=== PATIENT | male | born 1945 | race Caucasian/White ===

== ENCOUNTER 2020-02-09 15:47 | Day surgery (SDC) | payer OTHER ==
[~2020-02-09] VITALS: Ht 182.9 cm; Wt 120.5 kg
[~2020-02-09 15:47] MED LIST: ALBU8HFA PO; AMLO2.5T2 PO; APIX5TAB3 PO; ATOR20TA66 PO; CARV25TA PO; CHOL2000 PO; CYCL-145 PO; DIGO250T76 PO; FERR325T28 PO; FLUT1AER IH; FURO40TA4 PO; LACT1CAP26 PO; LINA5TAB4 PO; NIAC1CAP PO; OMEG1CAP2 PO; OMEP20TA5 PO; OXYC10TA47 PO; PIOG30TA10 PO; SPIIN IH; TAMS0.4C32 PO; [UNRECOGNIZED DRUG - CODE] PO
[2020-02-09 15:48] VITALS: BP 154/67
[2020-02-09] MEDS ORDERED: fentaNYL/PF 50MCG/1 ML 2ML syringe ONE (15:49)
[2020-02-09] MEDS ORDERED: MIDAZolam 5mg/5ml vial ONE (15:49)
[2020-02-09] MEDS ORDERED: LIDOcaine Viscous 15ml cup ONE (15:49)
[2020-02-09 17:38] VITALS: BP 124/63
[2020-02-09 17:48] VITALS: BP 122/54
[2020-02-09] MEDS ORDERED: DOCU-148 PO (17:53)
[2020-02-09] MEDS ORDERED: FURO10VI51 IV (17:54)
[2020-02-09] MEDS ORDERED: PRAV40TA PO (17:57)
[2020-02-09 17:58] VITALS: BP 124/62
[2020-02-09] MEDS ORDERED: TEMA15CA5 PO (18:00)
[2020-02-09] MEDS ORDERED: INSU300I SQ (18:05)
[2020-02-09] MEDS ORDERED: INSU100V43 SQ (18:06)
[2020-02-09] MEDS ORDERED: SEVE800T8 PO (18:07)
[2020-02-09 18:08] VITALS: BP 132/70
[2020-02-09] MEDS ORDERED: BUDE0.253 NEB (18:08)
[2020-02-09] MEDS ORDERED: MYCOL15CR TOP (18:09)
== END 2020-02-09 18:15 ==
LOC: GI LAB 15:47
PROVIDERS: ATTEND Internal Medicine Gastroenterology
DX: D64.9 Anemia, unspecified (principal); K31.811 Angiodysplasia of stomach and duodenum with bleeding; K20.81 Other esophagitis with bleeding; K31.89 Other diseases of stomach and duodenum; K29.50 Unspecified chronic gastritis without bleeding; I11.0 Hypertensive heart disease with heart failure; I50.9 Heart failure, unspecified; J44.9 Chronic obstructive pulmonary disease, unspecified; E11.9 Type 2 diabetes mellitus without complications; F17.290 Nicotine dependence, other tobacco product, uncomplicated; Z79.01 Long term (current) use of anticoagulants; Z79.899 Other long term (current) drug therapy; Z88.8 Allergy status to other drugs, medicaments and biological substances
CPT/HCPCS: 43239; 43255; G0500; J2250; J3010; J7040; 43227; 99152; A4620

== ENCOUNTER 2020-11-09 07:10 | Day surgery (SDC) | payer MEDICARE ==
[2020-11-08 12:59] LABS: BASOPHILS % (AUTO) 0.6 % (0-1); EOSINOPHILS # (AUTO) 0.3 X10'3 (0-0.9); EOSINOPHILS % (AUTO) 4.8 % (0-6); HEMATOCRIT 32.2 % (42.0-52.0); HEMOGLOBIN 10.6 g/dl (14.0-17.9); LYMPHOCYTES # (AUTO) 1.2 X10'3 (1.1-4.8); LYMPHOCYTES % (AUTO) 17.4 % (21-51); MEAN CORPUSCULAR HEMOGLOBIN 27.2 PG (27.0-31.0); MEAN CORPUSCULAR VOLUME 82.5 FL (78-98); MEAN PLATELET VOLUME 6.4 FL (7.4-10.4); MONOCYTES # (AUTO) 0.8 X10'3 (0-0.9); MONOCYTES % (AUTO) 11.5 % (2-12); NEUTROPHILS # (AUTO) 4.4 X10'3 (1.8-7.7); NEUTROPHILS % (AUTO) 65.7 % (42-75); PLATELET COUNT 266 X10'3 (140-440); RED CELL DISTRIBUTION WIDTH 17.5 % (11.5-14.5); WHITE BLOOD COUNT 6.7 X10'3 (4.5-11.0)
[2020-11-08 13:08] LABS: ALBUMIN 2.7 G/DL (3.4-5.0); ANION GAP 10 (8-16); BLOOD UREA NITROGEN 35 MG/DL (7-18); BUN/CREATININE RATIO 16.5 (5.4-32.0); CALCIUM 8.4 MG/DL (8.5-10.1); CHLORIDE 96 MMOL/L (99-107); CREATININE 2.12 MG/DL (0.60-1.10); GLUCOSE 216 MG/DL (70-104); POTASSIUM 4.3 MMOL/L (3.5-5.1); SODIUM 130 MMOL/L (135-145); eGFR 31 ML/MIN
[2020-11-08 13:13] LABS: PARTIAL THROMBOPLASTIN TIME 28 SECONDS (22-32)
[~2020-11-09] VITALS: Ht 182.9 cm; Wt 104.1 kg
[2020-11-09] VITALS (11 sets, daily range): BP systolic 125–144; BP diastolic 52–65
[~2020-11-09 07:10] MED LIST changes: -AMLO2.5T2 PO; +AMLO5TAB PO; +ASCO-134 PO; -CHOL2000 PO; +CHOL400T8 PO; -CYCL-145 PO; +DIGO125T97 PO; -DIGO250T76 PO; +DOCU-148 PO; +FERR-39 PO; -FERR325T28 PO; -FLUT1AER IH; +IPRA3AMP9 NEB; -LACT1CAP26 PO; +LANTUS SQ; -LINA5TAB4 PO; -NIAC1CAP PO; +OMEG-79 PO; -OMEG1CAP2 PO; -OMEP20TA5 PO; -OXYC10TA47 PO; +PANT-47 PO; -PIOG30TA10 PO; +SEMA1PEN3 SQ; -SPIIN IH; -[UNRECOGNIZED DRUG - CODE] PO
[2020-11-09] MEDS: normal saline 1,000 ML IV SCH ×2 (07:35→17:35)
[2020-11-09] MEDS ORDERED: LORazepam 0.5 MG tablet PO PRN (07:35)
[2020-11-09] MEDS ORDERED: diphenhydrAMINE 25mg capsule PO PRN (07:35)
[2020-11-09] MEDS ORDERED: TIOT4MIS5 (07:57)
[2020-11-09] MEDS ORDERED: PIOG30TA71 PO (07:57)
[2020-11-09] MEDS ORDERED: OMEP-50 PO (07:57)
[2020-11-09] MEDS ORDERED: BACL10TA PO (07:57)
[2020-11-09] MEDS ORDERED: FLUT1AER (07:57)
[2020-11-09] MEDS ORDERED: NIA500ERT PO (07:57)
[2020-11-09] MEDS ORDERED: LISI-790 PO (07:57)
[2020-11-09] MEDS ORDERED: BUDE10.2 INH (07:57)
[2020-11-09] MEDS ORDERED: sodium bicarbonate (8.4%) inj. 150 ML in dextrose 5%-water 1,000 ML IV ONE ×2 (08:05→12:10)
[2020-11-09] MEDS: acetylcysteine 200 MG/ml 4ml vial PO PRN ×3 (08:24→17:39)
[2020-11-09] MEDS ORDERED: LIDOcaine/PRILOcaine 5gm cream TP ONE (09:20)
[2020-11-09] MEDS ORDERED: midazolam 1 mg/ML 2ml injection ONE (10:12)
[2020-11-09] MEDS ORDERED: nitroGLYCERIN-Tridil 50MG/D5W 250 ML IV ONE (10:12)
[2020-11-09] MEDS ORDERED: verapamil 2.5 mg/ml inj IV ONE (10:12)
[2020-11-09] MEDS ORDERED: iohexol 350MG/ML 100ml bottle IV ONE (10:13)
[2020-11-09] MEDS ORDERED: LIDOcaine 1% (10mg/ml)w/preservative injection 20ml MDV ONE (10:13)
[2020-11-09] MEDS ORDERED: fentaNYL/PF 50MCG/1 ML 2ML syringe ONE (10:13)
[2020-11-09] MEDS ORDERED: heparin 1,000unit/ml 10ml vial 10 ML ONE (10:13)
[2020-11-09] MEDS ORDERED: iohexol 350 MG/ML 50ML vial IV ONE (10:13)
[2020-11-09 11:35] LABS: ISTAT HGB ART 11.2 g/dl (14.0-18.0); ISTAT Hct ART 33 %PCV (42-52); ISTAT O2 SATURATION ARTERIAL 81 % (95-98); ISTAT SOURCE ART
[2020-11-09 15:22] LABS: ISTAT Hct MIX 32 %PCV (42-52); ISTAT O2 SATURATION MIX VENOUS 63 % (60-80); ISTAT SOURCE VEN
== END 2020-11-09 18:00 | disposition home or self-care (01) ==
LOC: SSTAY O 07:10
PROVIDERS: ATTEND Internal Medicine Cardiovascular Disease
DX: R94.39 Abnormal result of other cardiovascular function study (principal); I25.10 Atherosclerotic heart disease of native coronary artery without angina pectoris; J44.9 Chronic obstructive pulmonary disease, unspecified; E11.22 Type 2 diabetes mellitus with diabetic chronic kidney disease; I13.0 Hypertensive heart and chronic kidney disease with heart failure and stage 1 through stage 4 chronic kidney disease, or unspecified chronic kidney disease; N18.9 Chronic kidney disease, unspecified; I50.22 Chronic systolic (congestive) heart failure; E78.5 Hyperlipidemia, unspecified; M19.90 Unspecified osteoarthritis, unspecified site; F17.210 Nicotine dependence, cigarettes, uncomplicated; G47.30 Sleep apnea, unspecified; I48.91 Unspecified atrial fibrillation; I27.20 Pulmonary hypertension, unspecified; E78.49 Other hyperlipidemia; E66.3 Overweight; Z68.31 Body mass index [BMI] 31.0-31.9, adult; Z79.899 Other long term (current) drug therapy; Z85.828 Personal history of other malignant neoplasm of skin; Z99.81 Dependence on supplemental oxygen; Z98.890 Other specified postprocedural states
CPT/HCPCS: 36415; 76937; 80048; 82803; 82948; 85014; 85025; 85610; 85730; 93005; 93460; 99152; 99153; C1769; C1894; J1644; J2001; J2250; J3010; J7030; Q0163; Q9967; A4620; A5120; A6258; C1751; J3490

== ENCOUNTER 2021-06-07 10:30 | Emergency (ER) | payer MEDICARE ==
[~2021-06-07] VITALS: Ht 182.9 cm; Wt 101.4 kg
[~2021-06-07 10:30] MED LIST changes: +CALC0.2511 PO; -DIGO125T97 PO; -IPRA3AMP9 NEB; +SILV50CR31 TP
[2021-06-07 10:53] VITALS: BP 128/56
[2021-06-07] MEDS ORDERED: ceFAZolin 1gm IM kit IM ONE (12:15)
--- NOTE | 2021-06-07 13:28 | NUR ---
TECH CLEANING LAC
[2021-06-07] MEDS ORDERED: SULF1TAB45 PO (13:33)
--- NOTE | 2021-06-07 14:02 | NUR ---
SUTURES BEING PLACED
== END 2021-06-07 14:27 | disposition home or self-care (01) ==
LOC: ER 10:31
DX: S92.425A Nondisplaced fracture of distal phalanx of left great toe, initial encounter for closed fracture (principal); S91.112A Laceration without foreign body of left great toe without damage to nail, initial encounter; M79.675 Pain in left toe(s); I25.10 Atherosclerotic heart disease of native coronary artery without angina pectoris; I11.0 Hypertensive heart disease with heart failure; I50.9 Heart failure, unspecified; J44.9 Chronic obstructive pulmonary disease, unspecified; E11.9 Type 2 diabetes mellitus without complications; G89.29 Other chronic pain; Z87.01 Personal history of pneumonia (recurrent); Z79.4 Long term (current) use of insulin; Z79.899 Other long term (current) drug therapy; X58.XXXA Exposure to other specified factors, initial encounter; Y93.01 Activity, walking, marching and hiking; Y92.89 Other specified places as the place of occurrence of the external cause; Y99.8 Other external cause status
CPT/HCPCS: 12002; 96372; 99284; J0690